=== PATIENT | male | born 1950 | race Caucasian/White ===

== ENCOUNTER 2016-09-26 06:28 | Day surgery (SDC) | payer BC ==
[2016-09-26] VITALS (8 sets, daily range): BP systolic 82–115; BP diastolic 56–75; PULSE 50–58; RESP 14–18; Ht 172.7 cm; Wt 73.5 kg
[~2016-09-26] VITALS: Ht 172.7 cm; Wt 73.5 kg
[~2016-09-26 06:28] MED LIST: ASPI-664 PO; ATOR20TA38 PO
[2016-09-26 08:55] LABS: ADD SCAN DIFF NO
[2016-09-26 09:00] LABS: BASOPHILS % 0.2 % (0.0-2.0); EOSINOPHILS # 0.1 10^3/ul (0.0-0.5); EOSINOPHILS % 1.3 % (0.0-7.0); HEMOGLOBIN 15.6 g/dl (14.0-18.0); LYMPHOCYTES # 1.2 10^3/ul (0.8-2.9); LYMPHOCYTES % 13.4 % (15.0-51.0); MEAN CORPUSCULAR HEMOGLOBIN 31.6 pg (29.0-33.0); MEAN CORPUSCULAR HGB CONC 33.2 g/dl (32.0-37.0); MEAN CORPUSCULAR VOLUME 95.3 fl (82.0-101.0); MEAN PLATELET VOLUME 9.3 fl (7.4-10.4); MONOCYTE # 0.8 10^3/ul (0.3-0.9); MONOCYTES % 8.9 % (0.0-11.0); NEUTROPHIL # 6.6 10^3/ul (1.6-7.5); NEUTROPHILS % 75.9 % (39.0-77.0); PLATELET COUNT 289 10^3/UL (140-415); RED BLOOD COUNT 4.93 10^6/ul (4.70-6.10); RED CELL DISTRIBUTION WIDTH 12.3 % (11.5-14.5); WHITE BLOOD COUNT 8.7 10^3/ul (4.8-10.8)
[2016-09-26 09:05] LABS: PROTIME 13.2 Sec (12.2-14.2)
[2016-09-26 09:06] LABS: PARTIAL THROMBOPLASTIN TIME 28.1 Sec (25.0-35.0)
[2016-09-26] MEDS ORDERED: LIDOCAINE 1% (MDV) 20 ML INJ ONE (09:10)
[2016-09-26] MEDS ORDERED: IODIXANOL LOCM 100 ML BTL ONE (09:10)
[2016-09-26] MEDS ORDERED: HEPARIN 1000 UNITS/ML 10 ML INJ ONE (09:10)
[2016-09-26] MEDS ORDERED: MIDAZOLAM 1 MG/ML 2 ML INJ ONE (09:11)
[2016-09-26] MEDS ORDERED: SOD CHLORIDE 0.9% 500 ML ONE (09:11)
[2016-09-26] MEDS ORDERED: FENTAnyl 50 MCG/ML VIAL ONE (09:11)
[2016-09-26] MEDS ORDERED: NITROGLYCERIN (IC) 100 MCG/ML INJ ONE (09:11)
[2016-09-26] MEDS ORDERED: VERAPAMIL 5 MG INJ ONE (09:11)
[2016-09-26 09:20] LABS: CALCIUM 8.6 mg/dl (8.4-10.2); CHOL/HDL RATIO 3.1 RATIO; CREATININE 0.63 mg/dl (0.61-1.24); POTASSIUM 4.3 mmol/L (3.5-5.1)
[2016-09-26] MEDS ORDERED: DIAZEPAM 5 MG TAB PO ONE (10:00)
[2016-09-26] MEDS ORDERED: FAMOTIDINE 20 MG TAB PO ONE (10:00)
[2016-09-26] MEDS ORDERED: DIPHENHYDRAMINE 50 MG CAP PO ONE (10:00)
[2016-09-26] MEDS ORDERED: SOD CHLORIDE 0.9% 1,000 ML IV SCH (10:30)
[2016-09-26] MEDS ORDERED: AL HYDROX/MG HYDROX/SIMETH 30 ML CUP PO PRN (10:30)
[2016-09-26] MEDS ORDERED: ACETAMINOPHEN 325 MG TAB PO PRN (10:30)
[2016-09-26] MEDS ORDERED: morphine 2 MG INJ IV PRN (10:30)
[2016-09-26] MEDS ORDERED: ONDANSETRON 4 MG INJ IV PRN (10:30)
--- NOTE | 2016-09-26 11:26 | RADRPT ---
Vent Rate: 57 bpm RR Interval: 0 msec LA Interval: 180 msec QRS Duration: 98 msec QT Interval: 454 msec QTC Interval: 441 msec P-R-T [place]: 45 - 15 - 34 degrees Sinus bradycardia Otherwise normal ECG Electronically Signed By: Ismael Da Silva [id number]
--- NOTE | 2016-09-26 20:03 | CARRPT ---
DATE OF PROCEDURE: 09/26/2016 TYPE OF PROCEDURE: 1. Left heart catheterization. 2. Coronary angiography. 3. Left ventriculogram. ATTENDING PHYSICIAN: Christopher Pearl REFERRING PHYSICIAN: Dr. Roman Jean Baptiste INDICATION: Chest pain, with positive stress test findings for anterior ischemia. TYPE OF ANESTHESIA: Conscious and local. BRIEF HISTORY: Mr. Berry is a 66-year-old male with a history of hypertension and dyslipidemia, w ho initially presented with complaints of substernal chest pain. The patient has undergone a cardia c stress test, revealing anterior ischemia. Given these findings, the patient was referred for and presents today in order to undergo left heart catheterization to assess for the possibility of signi ficant obstructive coronary artery disease lending to symptoms of chest pain and subsequent positive stress test findings. PROCEDURE: After informed consent was obtained the patient was brought the [facility] cardiac catheterization lab, where his right and left groins were prepped and draped in the usu al sterile fashion. Lidocaine 2% was infiltrated into the right in order to achieve adequate anesthesia. Using modified Seldinger technique, the radial artery was cannulated and a 6-[place] art erial sheath was placed. A 6-[place] catheter was used to cannulate the left main coronary ost ium. With contrast injection, multiple views of the left coronary arterial system were obtained. A was then used to cannulate the right coronary arterial ostium. With contrast injection, mult iple views of the right coronary arterial system were obtained. The was removed and a 6-[place]ren[place] h pigtail was passed in the ascending aorta and into the left ventricle. Left ventricular end-diast olic pressure was measured. The pigtail catheter was then pulled back across the aortic valve to as sess for significant gradient, which there was not, and removed. Left end-diastolic pressure was measured. Using a power injector, 20 mL of contrast were injected, opacifying the left ventric le. The pigtail catheter was then pulled back across the aortic valve to assess for significant gra dient, which there was not, and removed. At this time the patient's catheter was removed. The sedrick ent's sheath was removed. was applied. This completed the procedure. FINDINGS: 1. Left main is 4 mm, with no significant stenoses. LAD proximally is a 3-mm vessel and has no sig nificant focal stenosis throughout its entirety. A mid branching diagonal 2-mm vessel with no signi ficant focal stenoses. The circumflex proximally is a 3.5-mm vessel and is widely patent, with no s ignificant intervening stenoses. There is a proximal branching obtuse marginal sub 2 mm and a dista l branching obtuse marginal sub 2 mm, with no significant focal stenoses. It is a codominant vessel and therefore gives off a 2-mm PDA, left sided, with no significant focal stenoses. The right margo nary artery proximally is a 3-mm vessel and has no significant focal stenosis. It has an ostial 20% to 30% stenosis. There is a very small PDA, sub 2 mm, with no significant focal stenoses. 2. Left ventriculogram revealed a left ventricular ejection fraction of 60%, a left ventricular end diastolic pressure of 24. No significant aortic stenosis by gradient, 1+ mitral regurgitation. TOTAL FLUOROSCOPY TIME: 6.4 minutes. TOTAL CONTRAST: 100 mL. IMPRESSION: 1. Very mild nonobstructive coronary artery disease. 2. Preserved LV systolic function. 3. Elevated left heart filling pressures. 4. No significant aortic stenosis by gradient. 5. 1+ mitral regurgitation. RECOMMENDATIONS: In light of the procedure findings at this time would: 1. Maximize medical management. 2. Aggressive risk factor reduction. 3. The patient will be readmitted to the same-day surgery center for post-cath observation and cont inued management of symptoms, with probable discharge later this afternoon. Dictated By: CHRISTOPHER WILDE/JERAMY Conf#: [id number] DID#: [id number] CC: ROMAN JEAN BAPTISTE MD;*EndCC*
== END 2016-09-26 14:35 | disposition home or self-care (01) ==
LOC: SDS 06:28
PROVIDERS: ATTEND Internal Medicine
DX: I25.10 Atherosclerotic heart disease of native coronary artery without angina pectoris (principal); I34.0 Nonrheumatic mitral (valve) insufficiency; E78.5 Hyperlipidemia, unspecified; I10 Essential (primary) hypertension; E78.00 Pure hypercholesterolemia, unspecified
CPT/HCPCS: 80048; 80061; 85025; 85610; 85730; 93005; 93458; C1769; C1887; J1644; J2250; J3010; J7040; Q9967; Z7610

== ENCOUNTER 2019-03-01 18:12 | Emergency (ER) | payer BC, OTHER ==
[~2019-03-01] VITALS: Ht 157.5 cm; Wt 70.4 kg
[~2019-03-01 18:12] MED LIST changes: -ASPI-664 PO; +ASPI-817 PO; +GABA100C14 ORAL; +MECL12.574 PO; +TAMS-14 PO
[2019-03-01 18:13] VITALS: Ht 157.5 cm; Wt 70.4 kg
[2019-03-01] MEDS ORDERED: MECLIZINE 12.5 MG TAB PO ONE (19:30)
[2019-03-01 21:40] VITALS: BP 122/83; PULSE 63; RESP 18
== END 2019-03-01 22:24 | disposition home or self-care (01) ==
LOC: E/R 18:12
DX: R42 Dizziness and giddiness (principal); R40.2142 Coma scale, eyes open, spontaneous, at arrival to emergency department; R40.2362 Coma scale, best motor response, obeys commands, at arrival to emergency department; R40.2252 Coma scale, best verbal response, oriented, at arrival to emergency department; R07.9 Chest pain, unspecified; Z86.73 Personal history of transient ischemic attack (TIA), and cerebral infarction without residual deficits
CPT/HCPCS: 70450; 71045; 80053; 80061; 80307; 81001; 83036; 84484; 85025; 85610; 85730; 93005